=== PATIENT | female | born 1930 | race African-American/Black ===

== ENCOUNTER 2018-03-26 02:32 | Emergency (ER) | payer OTHER, MEDICAID ==
[~2018-03-26] VITALS: Ht 160 cm; Wt 64.0 kg
[2018-03-26] MEDS ORDERED: ONDANSETRON HCL 4MG/2ML INJ IV STA (06:16)
[2018-03-26] MEDS ORDERED: FLUORESCEIN SODIUM 1MG/STRIP BOTHEYE ONE (06:30)
[2018-03-26 07:34] LABS: CLARITY URINE CLEAR (CLEAR); COLOR URINE YELLOW (YELLOW); KETONES URINE NEGATIVE (NEGATIVE); LEUKOCYTE ESTERASE URINE NEGATIVE (NEGATIVE); NITRITE URINE NEGATIVE (NEGATIVE); OCCULT BLOOD URINE NEGATIVE (NEGATIVE); PH URINE 7.5 (4.5-8.0); PROTEIN URINE NEGATIVE (NEGATIVE); SPECIFIC GRAVITY URINE 1.001 (1.005-1.030); UROBILINOGEN URINE 0.2 E.U./dL (0.2-1.0)
[2018-03-26 07:46] VITALS: BP 139/58
[2018-03-26 07:48] LABS: BASOPHILS % 0.3 % (0.0-2.0); CHLORIDE 107 mEq/L (98-107); EOSINOPHILS % 1.6 % (0.0-5.0); LYMPHOCYTES % 32.6 % (20.0-50.0); MEAN CORPUSCULAR VOLUME 86.1 fL (81.0-99.0); MEAN PLATELET VOLUME 8.2 fl (7.4-10.4); MONOCYTES % 9.8 % (2.0-8.0); NEUTROPHILS % 55.7 % (40.0-76.0); PLATELET 173 x1000/uL (130-400); RED CELL DISTRIBUTION WIDTH 13.6 % (11.6-14.6)
[2018-03-26 07:49] LABS: INR 1.1; PROTHROMBIN TIME 10.8 sec (9.1-11.1)
== END 2018-03-26 10:45 | disposition left against medical advice (07) ==
LOC: ER 02:32
DX: Z77.098 Contact with and (suspected) exposure to other hazardous, chiefly nonmedicinal, chemicals (principal); R11.0 Nausea; J20.9 Acute bronchitis, unspecified
CPT/HCPCS: 36415; 96374; 99283; J2405